=== PATIENT | male | born 1975 | race Caucasian/White ===

== ENCOUNTER 2022-09-13 08:50 | Inpatient (IN) | payer OTHER ==
[2022-09-13 09:15] VITALS: BMI 28.9
[2022-09-13] MEDS ORDERED: NALOXONE HCL (KLOXXADO) 8 MG SPRAY NS PRN (09:35)
[2022-09-13] MEDS ORDERED: MAGNESIUM HYDROX 2400MG/30ML ORAL SUSPENSION 30 ML CUP PO PRN (09:35)
[2022-09-13] MEDS ORDERED: DICYCLOMINE HCL 10 MG CAPSULE PO PRN (09:35)
[2022-09-13] MEDS ORDERED: guaiFENesin 600 MG TABLET.ER (FP) PO PRN (09:35)
[2022-09-13] MEDS ORDERED: ONDANSETRON *ODT* 4 MG TABLET SL PRN (09:35)
[2022-09-13] MEDS ORDERED: BENZOCAINE/MENTHOL (CHLORASEPTIC ) LOZENGE MM PRN (09:35)
[2022-09-13] MEDS ORDERED: POLYETHYLENE GLYCOL (HEALTHYLAX) 3350 17 GM PACKET PO PRN (09:35)
[2022-09-13] MEDS ORDERED: NALOXONE HCL 0.4 MG/ML VIAL IM PRN (09:35)
[2022-09-13] MEDS ORDERED: chlordiazePOXIDE HCL 25 MG CAPSULE PO PRN (09:35)
[2022-09-13] MEDS ORDERED: hydrOXYzine PAMOATE 25 MG CAPSULE (FP) PO PRN (09:35)
[2022-09-13] MEDS ORDERED: NICOTINE POLACRILEX 2 MG GUM BUC PRN (09:35)
[2022-09-13] MEDS ORDERED: NICOTINE 10 MG CARTRIDGE (INHALER) IH PRN (09:35)
[2022-09-13] MEDS ORDERED: LOPERAMIDE HCL 2 MG CAPSULE PO PRN (09:35)
[2022-09-13] MEDS ORDERED: BENZONATATE 200 MG CAPSULE PO PRN (09:35)
[2022-09-13] MEDS ORDERED: BISMUTH SUBSALICYLATE 524 MG/30 ML PO PRN (09:35)
[2022-09-13] MEDS ORDERED: MAG HYDROX/AL HYDROX/SIMETH 30 ML UNIT-DOSE CUP PO PRN (09:35)
[2022-09-13] MEDS: PRENATAL VITAMINS W/ FOLIC ACID TABLET (FP) PO SCH (10:44)
[2022-09-13] MEDS: METHOCARBAMOL 500 MG TABLET PO PRN (10:45)
[2022-09-13] MEDS: chlordiazePOXIDE HCL 25 MG CAPSULE PO SCH ×3 (10:45→22:09)
[2022-09-13] MEDS ORDERED: chlordiazePOXIDE HCL 25 MG CAPSULE ONE (10:48)
[2022-09-13] MEDS ORDERED: METHOCARBAMOL 500 MG TABLET ONE (10:49)
[2022-09-13] MEDS ORDERED: PRENATAL VITAMINS W/ FOLIC ACID TABLET (FP) PO ONE (10:49)
[2022-09-13] MEDS: IBUPROFEN 600 MG TABLET (FP) PO PRN ×2 (11:21→17:50)
[2022-09-13] MEDS: THIAMINE HCL 100 MG TABLET (FP) PO SCH (22:07)
[2022-09-13] MEDS: MELATONIN 5 MG TABLETS PO SCH (22:07)
[2022-09-13] MEDS: IBUPROFEN 400 MG TABLET (FP) PO PRN (22:09)
[2022-09-14] MEDS: IBUPROFEN 400 MG TABLET (FP) PO PRN (05:41)
[2022-09-14] MEDS: chlordiazePOXIDE HCL 25 MG CAPSULE PO SCH ×4 (05:41→22:36)
[2022-09-14] MEDS: PRENATAL VITAMINS W/ FOLIC ACID TABLET (FP) PO SCH (10:19)
[2022-09-14 10:20] LABS: HEMATOCRIT 43.6 % (35.4-49); HEMOGLOBIN 14.8 GM/dL (11.7-16.9); MCH 31.2 pg (25.7-33.7); MEAN CELL VOLUME 91.8 fl (80-96); MEAN PLT VOLUME 9.9 fl (7.5-11.1); PLATELET COUNT 126 10^3/uL (134-434); RBC 4.75 M/mm3 (4.00-5.60); RDW 13.5 % (11.9-15.9); WHITE BLOOD COUNT 3.4 K/mm3 (4.0-10.0)
[2022-09-14] MEDS: METHOCARBAMOL 500 MG TABLET PO PRN ×2 (10:21→22:35)
[2022-09-14 10:23] LABS: POTASSIUM 4.2 mmol/L (3.5-5.1)
[2022-09-14 10:27] LABS: CALCIUM 8.7 mg/dL (8.5-10.1)
[2022-09-14 10:28] LABS: ALBUMIN 3.3 g/dl (3.4-5.0)
[2022-09-14 10:30] LABS: CREATININE 0.7 mg/dL (0.55-1.3)
[2022-09-14 10:31] LABS: BILIRUBIN,TOTAL 0.8 mg/dL (0.2-1)
[2022-09-14 10:32] LABS: TOT PROT 6.5 g/dl (6.4-8.2)
[2022-09-14 11:18] LABS: HIV INTERPRETATION NEGATIVE (NEGATIVE)
[2022-09-14] MEDS ORDERED: PNEUMOC 20-VAL CONJ-DIP CRM/PF 0.5 ML SYRINGE IM ONE (13:00)
[2022-09-14] MEDS: IBUPROFEN 600 MG TABLET (FP) PO PRN (19:02)
[2022-09-14] MEDS: MELATONIN 5 MG TABLETS PO SCH (22:35)
[2022-09-14] MEDS: THIAMINE HCL 100 MG TABLET (FP) PO SCH (22:36)
[2022-09-15] MEDS: chlordiazePOXIDE HCL 25 MG CAPSULE PO SCH ×4 (06:15→22:14)
[2022-09-15] MEDS: PRENATAL VITAMINS W/ FOLIC ACID TABLET (FP) PO SCH (10:27)
[2022-09-15] MEDS: METHOCARBAMOL 500 MG TABLET PO PRN (10:28)
[2022-09-15] MEDS: IBUPROFEN 600 MG TABLET (FP) PO PRN ×2 (13:27→22:13)
[2022-09-15] MEDS: ACETAMINOPHEN 325 MG TABLET (FP) PO PRN (17:16)
[2022-09-15] MEDS: THIAMINE HCL 100 MG TABLET (FP) PO SCH (22:13)
[2022-09-15] MEDS: MELATONIN 5 MG TABLETS PO SCH (22:13)
[2022-09-16] MEDS ORDERED: chlordiazePOXIDE HCL 10 MG CAPSULE PO PRN
[2022-09-16] MEDS: chlordiazePOXIDE HCL 10 MG CAPSULE PO SCH ×4 (05:37→22:21)
[2022-09-16] MEDS: IBUPROFEN 600 MG TABLET (FP) PO PRN ×2 (05:42→17:16)
[2022-09-16] MEDS: PRENATAL VITAMINS W/ FOLIC ACID TABLET (FP) PO SCH (10:16)
[2022-09-16] MEDS: MELATONIN 5 MG TABLETS PO SCH (22:20)
[2022-09-16] MEDS: THIAMINE HCL 100 MG TABLET (FP) PO SCH (22:21)
[2022-09-16] MEDS: ACETAMINOPHEN 325 MG TABLET (FP) PO PRN (22:21)
[2022-09-17] MEDS: chlordiazePOXIDE HCL 10 MG CAPSULE PO SCH ×2 (05:40→18:14)
[2022-09-17] MEDS: IBUPROFEN 600 MG TABLET (FP) PO PRN (05:42)
[2022-09-17] MEDS: PRENATAL VITAMINS W/ FOLIC ACID TABLET (FP) PO SCH (10:13)
[2022-09-17 13:37] VITALS: RESP 18
[2022-09-17 19:03] VITALS: BP 111/62; PULSE 92; TEMP 98.2
[2022-09-18] MEDS ORDERED: chlordiazePOXIDE HCL 10 MG CAPSULE PO ONE (05:00)
== END 2022-09-17 19:18 | disposition home or self-care (01) | DRG 774 ==
LOC: YASAS 08:50 → Y3N 09:56
PROVIDERS: ADMIT Allergy & Immunology; ATTEND Surgery
PROC: HZ2ZZZZ Detoxification Services for Substance Abuse Treatment (ICD-10-PCS; principal; 2022-09-13)
DX: F10.230 Alcohol dependence with withdrawal, uncomplicated (principal); F14.10 Cocaine abuse, uncomplicated; F17.210 Nicotine dependence, cigarettes, uncomplicated; F31.9 Bipolar disorder, unspecified; F20.9 Schizophrenia, unspecified; F41.9 Anxiety disorder, unspecified; J45.30 Mild persistent asthma, uncomplicated; M54.50 Low back pain, unspecified; G89.29 Other chronic pain; Z62.810 Personal history of physical and sexual abuse in childhood; Z56.0 Unemployment, unspecified; Z59.00 Homelessness unspecified; Z88.0 Allergy status to penicillin; Z88.5 Allergy status to narcotic agent
CPT/HCPCS: 36415; 80053; 85027; 86780; 87389; 90677